=== PATIENT | male | born 1995 | race Asian ===

== ENCOUNTER 2019-02-17 07:53 | Day surgery (SDC) | payer OTHER ==
[~2019-02-17 07:53] MED LIST: SOD CHLORIDE 0.9% 1,000 ML IV
[2019-02-17] MEDS ORDERED: PROPOFOL 20 ML (09:55)
[2019-02-17] MEDS ORDERED: LIDOCAINE 2% (SDV) 5 ML INJ (09:56)
[2019-02-17] MEDS ORDERED: CEFAZOLIN 1 GM INJ (09:56)
[2019-02-17] MEDS ORDERED: FENTAnyl 50 MCG/ML VIAL ×2 (09:57→10:36)
[2019-02-17] MEDS: CEFAZOLIN 2 GM/50 ML (PMX) 50 ML IVPB (10:15)
[2019-02-17] MEDS: BUPIVACAINE 0.25% (MPF) 30 ML INJ (10:40)
[2019-02-17] MEDS ORDERED: MEPERIDINE 25 MG INJ IV (11:00)
[2019-02-17] MEDS ORDERED: HYDROCODONE/APAP (5/325) TAB PO (11:00)
[2019-02-17] MEDS ORDERED: ONDANSETRON 4 MG INJ IV (11:00)
[2019-02-17] MEDS ORDERED: ALBUTEROL 0.083% (NEB) 2.5 MG/3 ML AMP HHN (11:00)
[2019-02-17] MEDS ORDERED: EPHEDrine 25 MG/5 ML SYG IV (11:00)
[2019-02-17] MEDS ORDERED: METOCLOPRAMIDE 10 MG INJ IV (11:00)
[2019-02-17] MEDS ORDERED: hydrALAzine 20 MG INJ IV (11:00)
[2019-02-17] MEDS ORDERED: MIDAZOLAM 1 MG/ML 2 ML INJ IV (11:00)
[2019-02-17] MEDS ORDERED: LABETALOL HCL 20MG INJ IV (11:00)
[2019-02-17] MEDS ORDERED: FENTAnyl 50 MCG/ML VIAL IV ×3 (11:00)
[2019-02-17] MEDS ORDERED: KETOROLAC 30 MG INJ IV (11:00)
[2019-02-17] MEDS ORDERED: DIPHENHYDRAMINE 50 MG INJ IV (11:00)
[2019-02-17] MEDS ORDERED: OXYCODONE/ACETAMINOPHEN (5/325) TAB PO ×2 (11:00)
[2019-02-17] MEDS ORDERED: HYDROmorphONE 1 MG/5 ML IV SYRINGE IV ×3 (11:00)
== END 2019-02-17 12:06 | disposition home or self-care (01) ==
LOC: SDS 07:53
DX: D21.3 Benign neoplasm of connective and other soft tissue of thorax (principal); L72.0 Epidermal cyst; E66.9 Obesity, unspecified
CPT/HCPCS: 14301; 88307